=== PATIENT | female | born 1990 | race Caucasian/White ===

== ENCOUNTER 2017-04-23 21:03 | Emergency (ER) | payer OTHER ==
[2017-04-23 21:11] VITALS: BP 146/87; BMI 40.2
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
--- NOTE | 2017-04-23 23:48 | RAD ---
EXAM: Right forearm x-ray INDICATION: Pain COMPARISION: No priors for comparison TECHNIQUE: AP, lateral, 2 views FINDINGS: No acute fracture or dislocation. The joint spaces are preserved. The soft tissues are normal. No rad iopaque foreign body. IMPRESSION: Normal right forearm x-ray exam Reported By:
--- NOTE | 2017-04-23 23:48 | RAD ---
EXAM: Right ankle x-ray INDICATION: Pain COMPARISION: No priors for comparison TECHNIQUE: AP, lateral, and oblique, three views FINDINGS: No acute fracture or dislocation. There is no evidence of an intraosseous lesion. The joint spaces ar e preserved. No joint effusion is identified. The surrounding soft tissues appear unremarkable. There is no evidence of a radiopaque foreign body. IMPRESSION: Normal right ankle x-ray exam Reported By:
--- NOTE | 2017-04-23 23:49 | RAD ---
EXAM: Right Lower Extremity X-ray INDICATION: Pain COMPARISION: No comparison TECHNIQUE: PA and Lat, 2 view FINDINGS: No acute fracture or dislocation. The joint spaces are preserved. The soft tissues are normal. No rad iopaque foreign body. IMPRESSION: Normal right lower extremity x-ray examination Reported By:
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
[2017-04-24] MEDS ORDERED: TORADOL 60 MG VIAL IM ONE
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
[2017-04-24] MEDS ORDERED: ADACEL TDaP IM ONE ×2 (00:13→00:15)
[2017-04-24] MEDS ORDERED: TORADOL 60 MG VIAL ONE (00:14)
[2017-04-24] MEDS ORDERED: NEOSPORIN OINT ONE (00:21)
== END 2017-04-24 00:41 | disposition home or self-care (01) ==
LOC: ER 21:17
DX: S93.401A Sprain of unspecified ligament of right ankle, initial encounter (principal); S76.911A Strain of unspecified muscles, fascia and tendons at thigh level, right thigh, initial encounter; S56.911A Strain of unspecified muscles, fascia and tendons at forearm level, right arm, initial encounter; R51 Headache; V87.7XXA Person injured in collision between other specified motor vehicles (traffic), initial encounter
CPT/HCPCS: 70450; 73090; 73590; 73610; 74176; 90471; 96372; 99283; J1885